=== PATIENT | male | born 1950 | race Caucasian/White ===

== ENCOUNTER 2020-05-11 06:27 | Day surgery (SDC) | payer MEDICARE ==
[2020-05-04 16:06] LABS: CLARITY,URINE SLIGHTLY CLOUDY (Clear); COLOR,URINE YELLOW (Yellow); GLUCOSE, URINE NEGATIVE (Neg); KETONES,URINE NEGATIVE (Neg); LEUKOCYTE ESTERASE ,URINE NEGATIVE (Neg); NITRITES, URINE NEGATIVE (Neg); OCCULT BLOOD,URINE SMALL (Neg); PH,URINE 5.5 (4.8-8.0); PROTEIN,URINE NEGATIVE (Neg)
[2020-05-04 16:08] LABS: BASOPHILS # (AUTO) 0.1 X10'3 (0-0.2); BASOPHILS % (AUTO) 0.9 % (0-1); EOSINOPHILS # (AUTO) 0.3 X10'3 (0-0.9); LYMPHOCYTES # (AUTO) 1.4 X10'3 (1.1-4.8); LYMPHOCYTES % (AUTO) 24.3 % (21-51); MEAN CORPUSCULAR HEMOGLOBIN 30.3 PG (27.0-31.0); MEAN CORPUSCULAR HGB CONC 33.7 g/dL (33.0-36.5); MEAN CORPUSCULAR VOLUME 89.9 FL (78-98); MEAN PLATELET VOLUME 7.5 FL (7.4-10.4); MONOCYTES # (AUTO) 0.5 X10'3 (0-0.9); MONOCYTES % (AUTO) 8.1 % (2-12); NEUTROPHILS # (AUTO) 3.6 X10'3 (1.8-7.7); NEUTROPHILS % (AUTO) 61.7 % (42-75); PRE OP HEMATOCRIT 43.4 % (42.0-52.0); PRE OP HEMOGLOBIN 14.6 g/dL (14.0-17.9); PRE OP PLATELET COUNT 209 X10'3 (140-440); RED BLOOD COUNT 4.83 X10'6 (4.70-6.10); RED CELL DISTRIBUTION WIDTH 14.3 % (11.5-14.5)
[2020-05-04 16:11] LABS: UA COLLECTION TYPE NON-SPECIFIED
[2020-05-04 16:19] LABS: ALBUMIN 3.9 G/DL (3.4-5.0); ALBUMIN/GLOBULIN RATIO 1.1 (1.1-1.5); ALKALINE PHOSPHATASE 61 IU/L (46-116); BLOOD UREA NITROGEN 24 MG/DL (7-18); CALCIUM 8.6 MG/DL (8.5-10.1); CHLORIDE 109 MMOL/L (99-107); PRE OP ALT 24 U/L (30-65); PRE OP ANION GAP 7 (8-16); PRE OP AST 16 U/L (10-37); PRE OP BILIRUB, TOTAL 0.6 MG/DL (0.0-1.0); PRE OP GLUCOSE 91 MG/DL (70-104); PRE OP POTASSIUM 3.5 MMOL/L (3.4-5.1); PRE OP SODIUM 145 MMOL/L (135-145); TOTAL CARBON DIOXIDE 28.8 MMOL/L (24-32); TOTAL PROTEIN 7.4 G/DL (6.4-8.2); eGFR 74 ML/MIN
[2020-05-04 16:23] LABS: BACTERIA,URINE NONE SEEN /HPF (Neg); CAL OXALATE CRYSTALS 4+ /HPF (NEGATIVE); RBC,URINE 0-2 /HPF (0-2); SQUAMOUS EPITHELIAL CELL,UR NONE SEEN /LPF (FEW); WBC,URINE NONE SEEN /HPF (0-4)
[~2020-05-11] VITALS: Ht 195.6 cm; Wt 88.8 kg
[2020-05-11] VITALS (15 sets, daily range): BP systolic 128–163; BP diastolic 77–95
[~2020-05-11 06:27] MED LIST: NO HOME MEDS; ceFAZolin 2gm in dextrose, iso 50 ML IV ONE; famotidine 20mg tablet PO ONE; ringers solution, lacted 1,000 ML IV SCH
[2020-05-11] MEDS ORDERED: BUPIVAcaine/PF 2.5 mg/ml (0.25%) 30ml vial ONE (06:42)
[2020-05-11] MEDS ORDERED: sevoflurane 250ml liquid IH ONE (09:05)
[2020-05-11] MEDS ORDERED: fentaNYL/PF 50MCG/1 ML 2ML syringe ONE (09:12)
[2020-05-11] MEDS ORDERED: midazolam 2 mg/2 ml injection ONE (09:13)
[2020-05-11] MEDS ORDERED: meperidine/PF 25mg/ml syringe ONE (09:13)
[2020-05-11] MEDS ORDERED: propofol inj 20 ML IV ONE (09:21)
[2020-05-11] MEDS ORDERED: rocuronium 10mg/ml inj IV ONE (09:22)
[2020-05-11] MEDS ORDERED: LIDOcaine 2% (20mg/ml) 5ml vial ONE (09:22)
[2020-05-11] MEDS ORDERED: ondansetron/PF 4mg/2ml inj ONE (09:22)
[2020-05-11] MEDS ORDERED: dexamethasone sod phosphate 4mg/ml inj. ONE (09:22)
[2020-05-11] MEDS ORDERED: acetaminophen 1,000mg/100ml IV 100 ML IV ONE (09:30)
[2020-05-11] MEDS ORDERED: proCHLORperazine 10 MG/2 ml inj IV PRN (09:50)
[2020-05-11] MEDS ORDERED: meperidine/PF 25mg/ml syringe IV PRN ×3 (09:50)
[2020-05-11] MEDS ORDERED: ringers solution, lacted 1,000 ML IV SCH (09:50)
[2020-05-11] MEDS ORDERED: morphine 2 MG/ML inj. syringe IV PRN (09:50)
[2020-05-11] MEDS ORDERED: ondansetron/PF 4mg/2ml inj IV PRN (09:50)
[2020-05-11] MEDS ORDERED: morphine 4 MG/ML inj SYRINge IV PRN (09:50)
--- NOTE | 2020-05-11 12:12 | NUR ---
Received from OR via [facility], accompanied by Anesthesiologist DR ETIENNE and report given by Anesthesiologist. PT DROWSY, DENIES PAIN, ABDOMEN W/3 LAP SITES W/BANDAIDS CDI. Addendum: 05/11/20 at 1235 by Lynda Lee RN Amended: Links added.
--- NOTE | 2020-05-11 14:52 | NUR ---
PT UP AND ABLE TO AMBULATE SAFELY, HAS VOIDED X 2, TOLERATING ORAL FLUIDS. D/C INSTRUCTIONS GIVEN AND GONE OVER W/PT WHO VERBALIZES UNDERSTANDING. PT D/CD TO HOME VIA W/C TO PRIVATE VEHICLE W/O INCIDENT. Addendum: 05/11/20 at 1516 by Lynda Lee RN Amended: Links added.
== END 2020-05-11 14:52 | disposition home or self-care (01) ==
LOC: PAS 06:27
PROVIDERS: ATTEND Surgery
DX: K40.20 Bilateral inguinal hernia, without obstruction or gangrene, not specified as recurrent (principal); D17.6 Benign lipomatous neoplasm of spermatic cord; J45.909 Unspecified asthma, uncomplicated; Z98.890 Other specified postprocedural states; Z79.899 Other long term (current) drug therapy; Z20.828 Contact with and (suspected) exposure to other viral communicable diseases
CPT/HCPCS: 36415; 49650; 80053; 81001; 82948; 85025; 87635; 93005; C1758; C1781; J0131; J1100; J2001; J2175; J2250; J2405; J2704; J3010; J3490; J7120; A4215; A4618

== ENCOUNTER 2021-06-16 08:31 | Inpatient (IN) | payer MEDICARE ==
[~2021-06-16] VITALS: Ht 193 cm; Wt 90.9 kg
[2021-06-16] VITALS (8 sets, daily range): BP systolic 113–135; BP diastolic 70–89
[~2021-06-16 08:31] MED LIST changes: +ASPI81TA53 PO; +ATOR20TA66 PO; +LISI2.5T14 PO; +METO-395 PO; +NITR0.4T51 SL; -NO HOME MEDS; +TICA90TA PO; -ceFAZolin 2gm in dextrose, iso 50 ML IV ONE; -famotidine 20mg tablet PO ONE; -ringers solution, lacted 1,000 ML IV SCH
[2021-06-16] MEDS ORDERED: iohexol 300mg/ml 100ml inj. ONE (09:55)
[2021-06-16 10:00] LABS: BASOPHILS % (AUTO) 0.6 % (0-1); EOSINOPHILS # (AUTO) 0.2 X10'3 (0-0.9); EOSINOPHILS % (AUTO) 3.1 % (0-6); HEMATOCRIT 41.4 % (42.0-52.0); HEMOGLOBIN 14.3 g/dl (14.0-17.9); LYMPHOCYTES % (AUTO) 12.2 % (21-51); MEAN CORPUSCULAR HEMOGLOBIN 31.5 PG (27.0-31.0); MEAN CORPUSCULAR HGB CONC 34.5 g/dL (33.0-36.5); MEAN CORPUSCULAR VOLUME 91.2 FL (78-98); MEAN PLATELET VOLUME 7.6 FL (7.4-10.4); MONOCYTES # (AUTO) 0.7 X10'3 (0-0.9); MONOCYTES % (AUTO) 9.1 % (2-12); PLATELET COUNT 232 X10'3 (140-440); RED BLOOD COUNT 4.53 X10'6 (4.70-6.10); RED CELL DISTRIBUTION WIDTH 13.9 % (11.5-14.5)
[2021-06-16 10:13] LABS: ALANINE AMINOTRANSFERASE 36 U/L (12-78); ALBUMIN 3.9 G/DL (3.4-5.0); ALBUMIN/GLOBULIN RATIO 1.1 (1.1-1.5); ALKALINE PHOSPHATASE 75 IU/L (46-116); ANION GAP 7 (8-16); ASPARTATE AMINO TRANSFERASE 28 U/L (10-37); BLOOD UREA NITROGEN 28 MG/DL (7-18); BUN/CREATININE RATIO 18.1 (5.4-32.0); CALCIUM 8.9 MG/DL (8.5-10.1); CHLORIDE 102 MMOL/L (99-107); CREATININE 1.55 MG/DL (0.60-1.10); GLUCOSE 111 MG/DL (70-104); POTASSIUM 4.6 MMOL/L (3.5-5.1); SODIUM 136 MMOL/L (135-145); TOTAL CARBON DIOXIDE 27.3 MMOL/L (24-32); TOTAL PROTEIN 7.5 G/DL (6.4-8.2); eGFR 44 ML/MIN
[2021-06-16] MEDS ORDERED: ondansetron/PF 4mg/2ml inj IV ONE (10:25)
[2021-06-16] MEDS ORDERED: normal saline 1000ML IV soln IVB ONE (10:25)
[2021-06-16] MEDS ORDERED: ketorolac tromethamine 15mg/ml inj. IV ONE (10:25)
[2021-06-16] MEDS ORDERED: normal saline 1000ml 1,000 ML IV SCH (12:20)
[2021-06-16] MEDS ORDERED: magnesium 2GM in 50ml NS 50 ML IV PRN (12:20)
[2021-06-16] MEDS ORDERED: bisacodyl 10mg suppository rectal RC PRN (12:20)
[2021-06-16] MEDS ORDERED: magnesium hydroxide 30ml (MOM) UD suspension PO PRN (12:20)
[2021-06-16] MEDS ORDERED: potassium Cl 20 mEq SR tablet PO PRN ×2 (12:20)
[2021-06-16] MEDS ORDERED: metoclopramide 5 mg/ml inj IV PRN (12:20)
[2021-06-16] MEDS ORDERED: HYDROcodone/acetaminophen 5mg/325mg tablet PO PRN (12:20)
[2021-06-16] MEDS ORDERED: HYDROmorphone inj. 0.5 MG/0.5 ML DISP.SYRIN IV PRN (12:20)
[2021-06-16] MEDS ORDERED: mag hydrox/Alum hydrox/simeth 30ml oral suspension PO PRN (12:20)
[2021-06-16] MEDS ORDERED: magnesium 4gm in 100ml NS 100 ML IV PRN (12:20)
[2021-06-16] MEDS ORDERED: potassium CL 10mEq/100ml bag 100 ML IV PRN (12:20)
[2021-06-16] MEDS ORDERED: acetaminophen 325mg tablet PO PRN ×2 (12:20)
[2021-06-16] MEDS ORDERED: ondansetron 4mg rapidly disintigrating tab PO PRN (12:20)
[2021-06-16] MEDS ORDERED: magnesium Cl slow-release 64mg tablet PO PRN (12:20)
[2021-06-16] MEDS ORDERED: CefTRIAXone/D5W-Rocephin 1gm 50 ML IV SCH (12:20)
[2021-06-16] MEDS ORDERED: HYDROcodone/acetaminophen 10/325mg tab PO PRN (12:20)
[2021-06-16] MEDS ORDERED: HYDROmorphone/PF 0.2 MG/ML SYRINGE IV PRN (12:20)
[2021-06-16] MEDS ORDERED: acetaminophen 650mg rectal suppository RC PRN (12:20)
[2021-06-16] MEDS ORDERED: ondansetron/PF 4mg/2ml inj IV PRN ×2 (12:20→17:35)
[2021-06-16 12:53] LABS: CLARITY,URINE CLEAR (Clear); COLOR,URINE YELLOW (Yellow); GLUCOSE, URINE NEGATIVE (Neg); KETONES,URINE TRACE mg/dl (Neg); LEUKOCYTE ESTERASE ,URINE NEGATIVE (Neg); NITRITES, URINE NEGATIVE (Neg); OCCULT BLOOD,URINE MODERATE (Neg); PROTEIN,URINE NEGATIVE (Neg); UROBILINOGEN,URINE 0.2 E.U/dL (0.2-1.0)
[2021-06-16 13:01] LABS: UA COLLECTION TYPE NON-SPECIFIED
[2021-06-16 13:08] LABS: SQUAMOUS EPITHELIAL CELL,UR FEW /LPF (FEW)
[2021-06-16 13:09] LABS: BACTERIA,URINE FEW /HPF (Neg); WBC,URINE 0-4 /HPF (0-4)
[2021-06-16 14:34] LABS: MAGNESIUM 1.9 MG/DL (1.5-2.4); POTASSIUM 4.3 MMOL/L (3.5-5.1)
[2021-06-16 14:35] LABS: APTT 26 SECONDS (22-32)
[2021-06-16] MEDS ORDERED: METO-395 PO (14:45)
[2021-06-16] MEDS ORDERED: TICA90TA PO (14:45)
[2021-06-16] MEDS ORDERED: ATOR20TA66 PO (14:45)
[2021-06-16] MEDS ORDERED: LISI2.5T89 PO (14:45)
[2021-06-16] MEDS ORDERED: iohexol 300 MG/1 ML 50ml polymer ONE (15:25)
[2021-06-16] MEDS ORDERED: fentaNYL/PF 50MCG/1 ML 2ML syringe ONE (15:50)
[2021-06-16] MEDS ORDERED: midazolam 1 mg/ML 2ml injection ONE (15:51)
[2021-06-16] MEDS ORDERED: propofol inj 20 ML IV ONE (15:54)
--- NOTE | 2021-06-16 17:13 | NUR ---
Received from OR via , accompanied by Anesthesiologist DR KOEHLER and report given by Anesthesiolgist. PT PRESENTS WITH 20G RIGHT UPPER ARM, VSS. Addendum: 06/16/21 at 1725 by Maryana Graham RN, RN Amended: Links added.
[2021-06-16] MEDS ORDERED: ringers solution, lacted 1,000 ML IV SCH (17:35)
[2021-06-16] MEDS ORDERED: proCHLORperazine 10 MG/2 ml inj IV PRN (17:35)
[2021-06-16] MEDS ORDERED: morphine 2 MG/ML inj. syringe IV PRN (17:35)
[2021-06-16] MEDS ORDERED: meperidine/PF 25mg/ml syringe IV PRN ×3 (17:35)
[2021-06-16] MEDS ORDERED: morphine 4 MG/ML inj SYRINge IV PRN (17:35)
--- NOTE | 2021-06-16 18:13 | NUR ---
PATIENT A&OX4, DENIES PAIN, V/S WNL. I HAVE REVIEWED D/C INSTRUCTIONS WITH PATIENT and they have verbalized understanding patient d/c home with all belongings and family gave transport home. Addendum: 06/16/21 at 1829 by Maryana Graham RN, RN Amended: Links added.
[2021-06-16] MEDS ORDERED: docusate sod 100mg capsule PO SCH (20:00)
[2021-06-16] MEDS ORDERED: K and/or MAG REPLACEMENT MC SCH (20:00)
[2021-06-16] MEDS ORDERED: ticagrelor 90mg tablet PO SCH (20:00)
[2021-06-16] MEDS ORDERED: tamsulosin 0.4mg capsule PO SCH (21:00)
[2021-06-16] MEDS ORDERED: temazepam 15mg capsule PO PRN (21:00)
[2021-06-17] MEDS ORDERED: OXYB5TAB16 PO (06:14)
[2021-06-17] MEDS ORDERED: PHEN-824 PO (06:14)
[2021-06-17] MEDS ORDERED: TADA20TA PO (06:14)
[2021-06-17] MEDS ORDERED: HYDR-3965 PO (06:14)
[2021-06-17] MEDS ORDERED: DIAZ5TAB PO (06:14)
[2021-06-17] MEDS ORDERED: ONDA4TAB12 PO (06:14)
[2021-06-17] MEDS ORDERED: FLO0.4C PO (06:14)
[2021-06-17] MEDS ORDERED: KETO10TA2 PO (06:14)
[2021-06-17] MEDS ORDERED: lisinopril 2.5mg tablet PO SCH (08:00)
[2021-06-17] MEDS ORDERED: metoprolol succinate 25mg (24-HOUR) SR. Tablet PO SCH (08:00)
== END 2021-06-16 18:00 | disposition home or self-care (01) | DRG 661 ==
LOC: ER 08:31 → ED HOLD 12:22
PROVIDERS: ADMIT Family Medicine; ATTEND Family Medicine
PROC: 0TBB8ZZ Excision of Bladder, Via Natural or Artificial Opening Endoscopic (ICD-10-PCS; 2021-06-16)
PROC: 0TC68ZZ Extirpation of Matter from Right Ureter, Via Natural or Artificial Opening Endoscopic (ICD-10-PCS; 2021-06-16)
PROC: BT1D1ZZ Fluoroscopy of Right Kidney, Ureter and Bladder using Low Osmolar Contrast (ICD-10-PCS; 2021-06-16)
PROC: BW211ZZ Computerized Tomography (CT Scan) of Abdomen and Pelvis using Low Osmolar Contrast (ICD-10-PCS; 2021-06-16)
PROC: 0T768DZ Dilation of Right Ureter with Intraluminal Device, Via Natural or Artificial Opening Endoscopic (ICD-10-PCS; principal; 2021-06-16 15:48)
DX: N13.2 Hydronephrosis with renal and ureteral calculous obstruction (principal); I25.10 Atherosclerotic heart disease of native coronary artery without angina pectoris; N32.89 Other specified disorders of bladder; N40.0 Benign prostatic hyperplasia without lower urinary tract symptoms; K44.9 Diaphragmatic hernia without obstruction or gangrene; E78.00 Pure hypercholesterolemia, unspecified; I10 Essential (primary) hypertension; E78.5 Hyperlipidemia, unspecified; Z20.822 Contact with and (suspected) exposure to COVID-19; D49.4 Neoplasm of unspecified behavior of bladder; Z87.442 Personal history of urinary calculi; Z95.5 Presence of coronary angioplasty implant and graft; Z91.010 Allergy to peanuts; Z79.899 Other long term (current) drug therapy; Z86.73 Personal history of transient ischemic attack (TIA), and cerebral infarction without residual deficits; Z79.82 Long term (current) use of aspirin; Z80.51 Family history of malignant neoplasm of kidney
CPT/HCPCS: 36415; 71045; 74177; 76000; 80053; 81001; 83605; 83735; 84132; 84484; 85025; 85730; 87635; 93005; 96361; 96374; 96375; 99285; A4618; C1758; C1769; C1894; C2617; G0378; J0696; J1170; J1885; J2250; J2405; J2704; J3010; J7030; J7120; Q9967